=== PATIENT | female | born 1975 ===

== ENCOUNTER 2018-12-03 10:50 | Emergency (ER) | payer OTHER ==
[~2018-12-03] VITALS: Ht 157.5 cm; Wt 73.9 kg
[2018-12-03 11:27] LABS: PLATELET COUNT 324 K/uL (152-353)
[2018-12-03 11:37] LABS: POTASSIUM 3.9 mmol/L (3.6-5.2); SODIUM 142 mmol/L (136-145)
[2018-12-03 15:16] VITALS: BP 106/74; TEMP 98
== END 2018-12-03 15:16 | disposition home or self-care (01) ==
LOC: ED 10:50
PROVIDERS: Emergency Medicine
DX: R07.89 Other chest pain (principal)
CPT/HCPCS: 36415; 80053; 82550; 82553; 84484; 85027; 85379; 93005; 99284